=== PATIENT | male | born 1960 | race Caucasian/White ===

== ENCOUNTER 2018-07-03 19:23 | Outpatient (REF) | payer MEDICARE, OTHER, SELFPAY ==
[2018-07-03 20:48] LABS: ALT 16 U/L (12-78); AST 13 U/L (15-37); HDL Cholesterol 23 mg/dL (40-60); LDL CHOLESTEROL 69 mg/dL (<100)
[2018-07-03 21:01] LABS: Creatine Kinase 120 U/L (39-308)
== END 2018-07-03 19:24 ==
LOC: NCHCN 19:23
PROVIDERS: PCP General Practice; Visit Provider Nurse Practitioner Family
DX: I10 Essential (primary) hypertension (principal); R78.5 Finding of other psychotropic drug in blood
CPT/HCPCS: 82550; 83721; 83718; 84450; 84460

== ENCOUNTER 2019-02-26 15:26 | Outpatient (REF) | payer MEDICARE, OTHER, SELFPAY ==
[2019-02-26 21:03] LABS: Anion Gap 11.5 mmol/L (3-11); BUN 12 mg/dL (7-18); CO2 22.5 mmol/L (21.0-32.0); CREATININE 1.18 mg/dL (0.70-1.30); Calcium 9.2 mg/dL (8.5-10.1); Chloride 108 mmol/L (98-107); Glucose 101 mg/dL (70-100); Potassium 4.1 mmol/L (3.5-5.1); Sodium 142 mmol/L (136-145)
== END 2019-02-26 15:46 ==
LOC: NCHCN 15:26
PROVIDERS: PCP General Practice; Visit Provider Nurse Practitioner Family
DX: I10 Essential (primary) hypertension (principal)
CPT/HCPCS: 80048

== ENCOUNTER 2020-04-12 17:04 | Outpatient (REF) | payer MEDICARE, SELFPAY ==
[2020-04-12 20:32] LABS: ALT 27 U/L (16-63); AST 19 U/L (15-37); Albumin 3.9 g/dL (3.4-5.0); Alkaline Phosphatase 81 U/L (46-116); Anion Gap 11.2 mmol/L (3-11); BUN 14 mg/dL (7-18); Bilirubin, Total 0.5 mg/dL (0.2-1.0); CO2 25.8 mmol/L (21.0-32.0); CREATININE 0.98 mg/dL (0.70-1.30); Calcium 8.8 mg/dL (8.5-10.1); Chloride 104 mmol/L (98-107); Creatine Kinase 139 U/L (39-308); Glucose 78 mg/dL (74-106); Potassium 3.8 mmol/L (3.5-5.1); Sodium 141 mmol/L (136-145); Total Protein 7.1 g/dL (6.4-8.2)
[2020-04-12 20:47] LABS: HDL Cholesterol 26 mg/dL (40-60); LDL CHOLESTEROL 125 mg/dL (<100)
== END 2020-04-12 17:24 ==
LOC: NCHCN 17:04
PROVIDERS: PCP General Practice; Visit Provider Nurse Practitioner Family
DX: I10 Essential (primary) hypertension (principal); E78.5 Hyperlipidemia, unspecified
CPT/HCPCS: 80053; 82550; 83721; 83718

== ENCOUNTER 2020-10-11 20:01 | Outpatient (REF) | payer MEDICARE, SELFPAY ==
[2020-10-11 22:02] LABS: HDL Cholesterol 24 mg/dL (40-60); LDL CHOLESTEROL 139 mg/dL (<100)
== END 2020-10-11 20:21 ==
LOC: NCHCN 20:01
PROVIDERS: PCP General Practice; Visit Provider Nurse Practitioner Family
DX: E78.5 Hyperlipidemia, unspecified (principal); I10 Essential (primary) hypertension
CPT/HCPCS: 83721; 83718

== ENCOUNTER 2021-07-06 11:17 | Outpatient (REF) | payer MEDICARE, SELFPAY ==
[2021-07-06 14:49] LABS: ALT 27 U/L (16-63); AST 20 U/L (15-37); Anion Gap 10.2 mmol/L (3-11); BUN 20 mg/dL (7-18); CO2 26.8 mmol/L (21.0-32.0); CREATININE 1.3 mg/dL (0.70-1.30); Calcium 8.7 mg/dL (8.5-10.1); Chloride 102 mmol/L (98-107); Creatine Kinase 229 U/L (39-308); Estimated GFR 56.12 (mL/min/1.73m2); Glucose 111 mg/dL (74-106); Sodium 139 mmol/L (136-145)
[2021-07-06 15:06] LABS: HDL Cholesterol 28 mg/dL (40-60); LDL CHOLESTEROL 98 mg/dL (<100)
== END 2021-07-06 11:18 | disposition home or self-care (01) ==
LOC: NCHCN 11:17
PROVIDERS: PCP General Practice; Visit Provider Nurse Practitioner Family
DX: I10 Essential (primary) hypertension (principal); E78.5 Hyperlipidemia, unspecified
CPT/HCPCS: 80048; 82550; 83721; 83718; 84450; 84460

== ENCOUNTER 2022-01-10 16:18 | Outpatient (REF) | payer MEDICARE, SELFPAY ==
[2022-01-10 19:25] LABS: Potassium 3.3 mmol/L (3.5-5.1)
== END 2022-01-10 16:19 | disposition home or self-care (01) ==
LOC: NCHCN 16:18
PROVIDERS: PCP General Practice; Visit Provider Nurse Practitioner Family
DX: I10 Essential (primary) hypertension (principal); E78.5 Hyperlipidemia, unspecified
CPT/HCPCS: 84132

== ENCOUNTER 2022-10-17 13:58 | Outpatient (REF) | payer MEDICARE, SELFPAY ==
[2022-10-17 15:57] LABS: Hemoglobin A1C 5.9 % (<5.7)
[2022-10-17 16:05] LABS: ALT 19 U/L (16-63); AST 20 U/L (15-37); Albumin 3.6 g/dL (3.4-5.0); Alkaline Phosphatase 63 U/L (46-116); Anion Gap 8.4 mmol/L (3-11); BUN 16 mg/dL (7-18); Bilirubin, Total 0.4 mg/dL (0.2-1.0); CO2 28.6 mmol/L (21.0-32.0); Calcium 8.9 mg/dL (8.5-10.1); Chloride 104 mmol/L (98-107); Estimated GFR 84.57 (mL/min/1.73m2); Glucose 100 mg/dL (74-106); HDL Cholesterol 31 mg/dL (40-60); LDL CHOLESTEROL 76 mg/dL (<100); Potassium 3.1 mmol/L (3.5-5.1); Sodium 141 mmol/L (136-145); Total Protein 6.6 g/dL (6.4-8.2)
[2022-10-17 16:20] LABS: Creatine Kinase 111 U/L (39-308)
== END 2022-10-17 13:59 | disposition home or self-care (01) ==
LOC: NCHCN 13:58
PROVIDERS: PCP General Practice; Visit Provider Nurse Practitioner Family
DX: E78.5 Hyperlipidemia, unspecified (principal); R73.9 Hyperglycemia, unspecified
CPT/HCPCS: 80053; 82550; 83721; 83036; 83718

== ENCOUNTER 2024-02-19 16:20 | Outpatient (REF) | payer OTHER, SELFPAY ==
[2024-02-19 16:41] LABS: ALT 27 U/L (16-63); AST 19 U/L (15-37); Albumin 3.9 g/dL (3.4-5.0); Alkaline Phosphatase 87 U/L (46-116); Anion Gap 11.2 mmol/L (3-11); BUN 13 mg/dL (7-18); Bilirubin, Total 0.3 mg/dL (0.2-1.0); CO2 24.8 mmol/L (21.0-32.0); CREATININE 1.1 mg/dL (0.70-1.30); Calcium 8.7 mg/dL (8.5-10.1); Chloride 105 mmol/L (98-107); Creatine Kinase 99 U/L (39-308); Estimated GFR 74.96 (mL/min/1.73m2); Glucose 115 mg/dL (74-106); Potassium 3.3 mmol/L (3.5-5.1); Sodium 141 mmol/L (136-145); Total Protein 7.1 g/dL (6.4-8.2)
[2024-02-19 17:36] LABS: HDL Cholesterol 29 mg/dL (40-60); LDL CHOLESTEROL 121 mg/dL (<100)
== END 2024-02-19 16:21 | disposition home or self-care (01) ==
LOC: NCHCN 16:20
PROVIDERS: PCP General Practice; Visit Provider Nurse Practitioner Family
DX: I10 Essential (primary) hypertension (principal); E78.5 Hyperlipidemia, unspecified; R73.03 Prediabetes
CPT/HCPCS: 80053; 82550; 83721; 83036; 83718

== ENCOUNTER → 2024-03-14 00:03 | Outpatient (CLI) | payer OTHER, SELFPAY ==
--- NOTE | 2024-03-14 14:30 | DI.US_ITS ---
APPROVED REPORT EXAM: Comprehensive 2D, Doppler, and color-flow Echocardiogram Patient Location: [facility] Consultant: Megha Pagan RDCS (AE) Indications: A Fib, HTN Other Information Study Quality: Fair. Technically limited study due to body habitus. Conclusion Normal left ventricular wall thickness and chamber size. Ejection fraction is 50 to 55%. There are no segmental wall motion abnormalities. Patient is in atrial fibrillation mildly rapid ventricular r esponse with [id number] variation Normal right ventricular size and function Both atria are normal in size Aortic valve is sclerotic and trileaflet without stenosis or regurgitation There is no additional structural or hemodynamically significant valvular disease Estimated right ventricular systolic pressure is 28 mmHg Wall motion Left Ventricle The left ventricle is normal size. Arrhythmia throughout exam. The overall left ventricular systolic function appears low normal. There is normal left ventricular wall thickness. There is normal LV segm ental wall motion. There is no ventricular septal defect visualized. LVEF is 53%. Right Ventricle Right ventricle is grossly normal in size. Right ventricular systolic function is grossly normal. Atria The left atrium size is normal. The right atrium size is normal. The interatrial septum is intact wit h no evidence for an atrial septal defect. Aortic Valve The Aortic valve is sclerotic. Aortic valve is trileaflet. There is no aortic valvular stenosis. No a ortic regurgitation is present. Mitral Valve The mitral valve is normal in structure. No evidence of mitral valve stenosis. Trace mitral regurgita tion. Tricuspid Valve The tricuspid valve is normal in structure. There is no tricuspid valve stenosis. Trace tricuspid reg urgitation. The RVSP is 28.1 mmHg. Pulmonic Valve The pulmonary valve is normal in structure. There is no pulmonic valvular stenosis. There is no pulmo estela valvular regurgitation. Great Vessels The aortic root is normal in size. Ascending aorta is not well visualized. Aortic arch is not well vi sualized. IVC is normal in size and collapses >50% with inspiration. Pericardium There is no pericardial effusion. 2D Dimensions IVSD d PLAX 0.74 cm M: 0.6-1.2 Ao Root d 3.41 cm M: 3.1 - 3.7 LVPW d PLAX 0.74 cm M: 0.6 - 1.2 LVID d PLAX 4.89 cm M: 4.2 - 5.8 LVDs 3.54 cm M: 2.5 - 4.0 LV EF Teichholz 53.5 % FS 27.64 % LV EDV (Teich) 112.3 mL LV ESV (Teich) 52.2 mL M-Mode TAPSE 1.72 cm (M/F) >1.7 Auto EF LV EDV A4C 119.1 mL LV EDV A2C 104.9 mL LV EDV BP 113.8 mL LV ESV A4C 57.6 mL LV ESV A2C 50.2 mL LV ESV BP 54.8 mL LVEF(%) A4C 51.7 % LVEF(%) A2C 52.1 % LVEF(%) BP 51.8 % LV SV A4C 61.5 ml LV SV A2C 54.7 ml LV SV BP 59.0 ml LV CO A4C 5.0 L/min LV CO A2C 5.7 L/min LV CO BP 5.3 L/min HR A4C 81.27 BPM HR A2C 103.75 BPM LV EDV Index (BP) LA Volume LA Length A4C 5.4 cm LA Length A2C 4.9 cm LA Area A4C s 16.95 cm2 LA Area A2C s 15.60 cm2 LA Vol A4C A-L 45.05 mL LA Vol A2C A-L 42.18 mL LA Vol Biplane A-L 45.8 mL LA Vol/BSA A4C A-L LA Vol/BSA A2C A-L LA Vol/BSA BP A-L 26.6 mL/m2 LA Vol A4C MOD 40.1 mL LA Vol A2C MOD 40.2 mL LA Vol BP MOD 42.1 mL RA Volume RA Area A4C 15.5 cm2 RA ESV A4C (A-L) 38.7mL RA Vol/BSA A4C A-L RA Length A4C 5.3 cm RA ESV A4C (MOD) 37.1mL LV Diastology MV E' medial 0.057 (>0.07 m/s) MV E' lateral 0.144 (>0.1 m/s) Aortic Valve AoV Vmax 1.40 m/s LVOT Vmax 0.97 m/s AoV Peak Grad 7.9 mmHg LVOT Peak Grad 3.8 mmHg AoV Area (Vmax) 2.15 cm2 LVOT VTI 0.164 m AoV VTI 0.273 m LVOT Mean Grad 1.9 mmHg AoV Mean John. 1.04 m/s LVOT SV 51.03 mL AoV Mean Grad 4.8 mmHg LVOT Diam s 1.95 cm AoV Area (VTI) 1.87 cm2 Velocity Ratio 0.69 Mitral Valve MV Vmax TIPS 0.93 m/s MV Mean Grad 1.5 (<2mmHg) MV VTI 0.182 m Pulmonary Valve PV Vmax 0.72 (0.5-1.5 m/s) RVOT Vmax 0.57 m/s PV Peak Grad 2.1 mmHg RVOT Peak Gr. 1.3 mmHg PV Mean John 0.46 m/s RVOT VTI 0.093 m PV Mean Grad 1.0 mmHg RVOT Mean Gr. 0.6 mmHg Tricuspid Valve RA Pressure 3.00 mmHg TR Vmax 2.50 m/s TV S' 0.11 m/s TR Peak Grad 25.0 mmHg RVSP (TR) 28.1 mmHg
== END ==
PROVIDERS: PCP General Practice; Visit Provider Nurse Practitioner Family
DX: I48.91 Unspecified atrial fibrillation (principal); I34.0 Nonrheumatic mitral (valve) insufficiency; I36.1 Nonrheumatic tricuspid (valve) insufficiency
CPT/HCPCS: 93306

== ENCOUNTER 2024-05-30 15:58 | Outpatient (CLI) | payer OTHER, SELFPAY ==
--- NOTE | 2024-05-30 15:45 | RT.EKG_ITS ---
APPROVED REPORT Exam: Resting ECG Reason for Exam: rhythm check Patient Location: O HR:49 bpm ECG Measurements Heart Rate 49 AXIS AZ 194 P 54 QRSd 116 QRS -52 QT 427 T 5 QTc 386 Conclusion Sinus bradycardia...rate< 50 LAD, consider left anterior fascicular block...axis(240,-40), S>R II III aVF
== END 2024-05-30 15:59 | disposition home or self-care (01) ==
LOC: DI.KIM 15:59
PROVIDERS: PCP Nurse Practitioner Family; Visit Provider Nurse Practitioner Family
DX: I48.91 Unspecified atrial fibrillation (principal); R00.1 Bradycardia, unspecified; I44.4 Left anterior fascicular block; I10 Essential (primary) hypertension; J44.9 Chronic obstructive pulmonary disease, unspecified; I48.0 Paroxysmal atrial fibrillation
CPT/HCPCS: 93010

== ENCOUNTER 2024-06-13 13:02 | Outpatient (REF) | payer OTHER, SELFPAY ==
[2024-06-13 16:29] LABS: Anion Gap 7.1 mmol/L (3-11); BUN 11 mg/dL (7-18); CO2 27.9 mmol/L (21.0-32.0); CREATININE 1.3 mg/dL (0.70-1.30); Calcium 9.2 mg/dL (8.5-10.1); Chloride 106 mmol/L (98-107); Estimated GFR 61.35 (mL/min/1.73m2); Glucose 94 mg/dL (74-106); Potassium 4.4 mmol/L (3.5-5.1); Sodium 141 mmol/L (136-145)
== END 2024-06-13 13:03 | disposition home or self-care (01) ==
LOC: LBN 13:02
PROVIDERS: PCP Nurse Practitioner Family; Visit Provider Nurse Practitioner Family
DX: I10 Essential (primary) hypertension (principal)
CPT/HCPCS: 80048

== ENCOUNTER 2025-02-13 11:17 | Outpatient (REF) | payer MEDICARE, SELFPAY ==
[2025-02-13 15:07] LABS: Calculated LDL 61 mg/dL (<100); Cholesterol 107 mg/dL (<200); HDL Cholesterol 34 mg/dL (>or=40); Triglyceride 61 mg/dL (<150)
== END 2025-02-13 11:18 | disposition home or self-care (01) ==
LOC: LBN 11:17
PROVIDERS: PCP Nurse Practitioner Family; Visit Provider Nurse Practitioner Family
DX: E78.5 Hyperlipidemia, unspecified (principal)
CPT/HCPCS: 80061

== ENCOUNTER 2025-03-10 16:46 | Emergency (ER) | payer MEDICARE, SELFPAY ==
[2025-03-10] VITALS (30 sets, daily range): BP systolic 131–140; BP diastolic 99–116; PULSE 54–112; RESP 13–33; TEMP 36.7; O2SAT 91–100
--- NOTE | 2025-03-10 16:45 | RT.EKG_ITS ---
APPROVED REPORT Exam: Resting ECG Reason for Exam: Left chest and shoulder pain Patient Location: E HR:90 bpm ECG Measurements Heart Rate 90 AXIS IN [id number] P [id number] QRSd 108 QRS -79 QT 381 T 82 QTc 486 Conclusion a fib [facility]
--- NOTE | 2025-03-10 16:55 | DI.RAD_ITS ---
Exam(s) XR CHEST 1V IN DI DEPT EXAM: XR CHEST 1V IN DI DEPT CLINICAL HISTORY: Cp/SOB TECHNIQUE: 2D digital imaging was performed. COMPARISON: CR CHEST 2 VIEWS PA,LAT from 04/16/2014 CR XR SHOULDER LT COMPLETE 2+V from 03/10/2025 FINDINGS: LUNGS: Mildly hyperinflated but clear. No pleural abnormality seen. HEART: Normal size. AORTA: Normal diameter. BONES: Unremarkable for age. Soft tissues: Unremarkable. IMPRESSION: No acute findings. DATA REPOSITORY: RADIATION DOSE DELIVERED:
--- NOTE | 2025-03-10 17:00 | DI.RAD_ITS ---
Exam(s) XR SHOULDER LT COMPLETE 2+V EXAM: XR SHOULDER LT COMPLETE 2+V CLINICAL HISTORY: Pain. TECHNIQUE: 2D digital imaging was performed. Four views. COMPARISON: No exams were available for comparison FINDINGS: BONES: No acute fracture is present. No bony destructive lesion is seen. There is spurring at the un dersurface of the acromion. This calcification adjacent to the acromion. Degenerative subchondral c ysts are noted in the humeral head. JOINTS: No dislocation present. The glenohumeral joint is maintained. No significant degenerative c hanges. There is minimal spurring at the AC joint. SOFT TISSUE: Normal. IMPRESSION: No acute abnormality DATA REPOSITORY: RADIATION DOSE DELIVERED:
--- NOTE | 2025-03-10 17:04 | ED.GENADUL_ITS ---
Discharge Plan Disposition Patient Disposition: Against Medical Advice Condition: Fair Discharge Details Clinical Impression: Degenerative arthritis of left shoulder region, Elevated troponin I level Primary Care Provider: Mayda Nowak ED Provider: Sharita Ballesteros Home Meds and New Rx's Prescriptions: New furosemide 20 mg tablet 20 mg PO DAILY Qty: 30 0RF Rx Instructions: Take once daily in am daily Continued (DME) Aerochamber Mini Spacer See Rx Instructions .Route Rx Instructions: As directed atorvastatin 80 mg tablet 80 mg PO DAILY epinephrine [EpiPen 2-Fabian] 0.3 mg/0.3 mL auto-injector 0.3 mg IM ONCE Rx Instructions: as a single dose; may repeat once Eliquis 5 mg tablet 5 mg PO BID diltiazem HCl 60 mg capsule,extended release 12 hr 60 mg PO BID Qty: 180 3RF Rx Instructions: Stop Metoprolol and start Diltiazem for Atrial fibrillation gabapentin 400 mg capsule 400 mg PO TID PRN (Reason: back pain) Qty: 240 3RF losartan 50 mg tablet 50 mg PO DAILY Qty: 90 3RF Trelegy Ellipta 100-62.5-25 mcg blister with device See Rx Instructions .ROUTE .COMPLEX Qty: 60 3RF Dose Instruction: INHALE ONE PUFF BY MOUTH EVERY DAY Rx Instructions: INHALE ONE PUFF BY MOUTH EVERY DAY levalbuterol tartrate 45 mcg/actuation HFA aerosol inhaler See Rx Instructions .ROUTE .COMPLEX Qty: 15 1RF Dose Instruction: INHALE TWO PUFFS BY MOUTH EVERY 4 HOURS NEEDED FOR FOR SHORTNESS OF BREATH OR WHEEZING Rx Instructions: INHALE TWO PUFFS BY MOUTH EVERY 4 HOURS NEEDED FOR FOR SHORTNESS OF BREATH OR WHEEZING Discharge Instructions Instructions: Osteoarthritis, Troponin Test, Chest Pain, Adult ED Additional Instructions: It is concerning today as your troponin level which is a cardiac specific enzyme is slightly elevated. He also have an elevated level called a proBNP which indicates that your heart is not pumping fluid appropriately which was elevated at 5000. A prescription for furosemide Lasix 20 mg tablets was sent to the pharmacy on file. Please take this daily in the a.m. and discuss this with your primary care provider for close follow-up within the next 3 to 5 days. Return to the ER if you have any worsening chest pain or recurrence of chest pain. The shoulder x-ray shows some bone spurring and degenerative changes with osteoarthritis. Please take Tylenol with food every 4-6 hours as needed for pain and swelling. Follow up with primary care provider in 3-5 days. Return to ED sooner if any worsening or concerns. At this time I did offer admission and I do recommend admission for further observation and blood draws which you have declined at this time. Please return to the ER if you change your mind. Referrals: Mayda Nowak APRN [Primary Care Provider] - 3 days HPI General Mode of arrival: ambulatory . Date/Time Provider Initiated Documentation: 03/10/25 16:54 . Limitations to Documentation: no limitations . Information obtained by: patient, RN notes reviewed and old records reviewed . HPI Narrative: 64-year-old male presents to the ER with a chief complaint left shoulder pain which has been worse over the last 3 days. He reports no recent injury that he is aware of no falls. He reports last night pain did radiate into his chest. He reports some relief with topical cream. Does have a history of atrial fibrillation is on Eliquis has COPD. He is having difficulty raising his arm approximately 45 degrees. Distal CMS is intact. He does have some rhonchi with auscultation of his lungs bilaterally. Related Data Home Medications ?Medication ?Instructions ?Recorded ?Confirmed atorvastatin 80 mg tablet 80 mg PO DAILY 05/29/24 03/10/25 epinephrine 0.3 mg/0.3 mL 0.3 mg IM ONCE 05/29/24 03/10/25 injection, auto-injector (EpiPen 2-Fabian) inhalational spacing device 05/29/24 03/10/25 (Aerochamber Mini) apixaban 5 mg tablet (Eliquis) 5 mg PO BID 05/30/24 03/10/25 losartan 50 mg tablet 50 mg PO DAILY #90 tabs 06/27/24 03/10/25 fluticasone fur. 100 mcg-umeclid See Rx Instructions .Route 12/08/24 03/10/25 62.5 mcg-vilant 25 mcg .COMPLEX #60 blisters inhalat.powder (Trelegy Ellipta) levalbuterol tartrate 45 See Rx Instructions .Route 02/09/25 03/10/25 mcg/actuation aerosol inhaler .COMPLEX #15 grams diltiazem HCl 60 mg 60 mg PO BID afib #180 caps 02/13/25 03/10/25 capsule,extended release 12 hr gabapentin 400 mg capsule 400 mg PO TID PRN back pain #240 02/13/25 03/10/25 caps furosemide 20 mg tablet 20 mg PO DAILY CHF #30 tabs 03/10/25 Previous Rx's ?Medication ?Instructions ?Recorded losartan 50 mg tablet 50 mg PO DAILY #90 tabs 06/27/24 fluticasone fur. 100 mcg-umeclid See Rx Instructions .Route 12/08/24 62.5 mcg-vilant 25 mcg .COMPLEX #60 blisters inhalat.powder (Trelegy Ellipta) levalbuterol tartrate 45 See Rx Instructions .Route 02/09/25 mcg/actuation aerosol inhaler .COMPLEX #15 grams diltiazem HCl 60 mg 60 mg PO BID afib #180 caps 02/13/25 capsule,extended release 12 hr gabapentin 400 mg capsule 400 mg PO TID PRN back pain #240 02/13/25 caps furosemide 20 mg tablet 20 mg PO DAILY CHF #30 tabs 03/10/25 Allergies Allergy/AdvReac Type Severity Reaction Status Date / Time venom-wasp Allergy Severe Swelling/Ed Verified 03/10/25 16:49 foster fluticasone (From Advair Allergy Intermediate Other (See Verified 03/10/25 16:49 Diskus) Comment) lisinopril Allergy Intermediate Other (See Verified 03/10/25 16:49 Comment) salmeterol (From Advair Allergy Intermediate Other (See Verified 03/10/25 16:49 Diskus) Comment) General Stated Complaint: GenMedical OSVALDO: 3 Review of Systems All systems reviewed & are unremarkable except as noted in HPI and below Cardiovascular Cardiovascular: Reports chest pain and Reports radiating jaw, neck or arm pain Musculoskeletal Musculoskeletal: Reports arthralgias Exam Narrative Exam Narrative: Constitutional: Alert and oriented x3. Appears stated age. Thin body habitus. Head: Normocephalic, no trauma. Eyes: Pupils PERRL, Red reflex noted, EOM's intact. Eyelids symmetrical without lesions, discharge, or swelling. ENT: Bilateral TM's WNL, External ear normal to inspection, no mastoid TTP, swelling, or erythema, Nasal turbinates WNL, no nasal discharge. Normal dentition, Posterior pharynx WNL, no exudate. Chest: Irregular rate, normal S1, S2, distal pulses intact. Resp: Lungs scattered rhonchi bilaterally. Abdomen: Soft, non-distended, Normoactive bowel sounds all 4 quads. Musculoskeletal: Normal gait, decreased abduction of left shoulder to approximately 45 degrees, distal CMS intact. Skin: No suspicious rashes or lesions. Capillary refill less than 2 sec. Neurologic: Cranial nerves II-XII intact. Alert and oriented x 3. Motor: No deficits noted. Sensory: Intact bilaterally all 4 extremities. Hematologic/Lymphatic: No ecchymosis, no lymphadenopathy. Course Vital Signs Vital signs: Vital Signs Temperature 36.7 C 03/10/25 16:51 Pulse 56 L 03/10/25 16:51 Respiratory Rate 24 03/10/25 16:51 Blood Pressure 131/99 H 03/10/25 16:51 Pulse Oximetry 91 L 03/10/25 16:51 Temperature 36.7 C 03/10/25 16:51 Temperature Source Oral 03/10/25 16:51 Pulse 56 L 03/10/25 16:51 Respiratory Rate 24 03/10/25 16:51 Blood Pressure 131/99 H 03/10/25 16:51 Blood Pressure Position Sitting 03/10/25 16:51 Pulse Oximetry 91 L 03/10/25 16:51 Oxygen Delivery Method Room Air 03/10/25 16:51 Oxygen Flow Rate 0 03/10/25 16:51 Medical Decision Making 64-year-old male presents to the ER with a chief complaint left shoulder pain which has been worse over the last 3 days. He reports no recent injury that he is aware of no falls. He reports last night pain did radiate into his chest. He reports some relief with topical cream. Does have a history of atrial fibrillation is on Eliquis has COPD. He is having difficulty raising his arm approximately 45 degrees. Distal CMS is intact. He does have some rhonchi with auscultation of his lungs bilaterally. Cardiac workup ordered to rule out cardiac involvement, serial troponins, chest x-ray x-ray of left shoulder. Did offer analgesic at this time which patient declined. Patient is tachycardic with a rate of 112, irregular rate atrial fibrillation. O2 sat 94% on room air. Initial troponin came back elevated at 80, proBNP is also elevated at 5171, glucose 110 no leukocytosis. X-ray shows degenerative changes of the left shoulder. Chest x-ray within normal limits. Informed patient and family of elevated troponin and repeat being necessary. Patient states that I am not going to stay here all night, I have animals at home. He has no complaints of chest pain at this time. Serial troponin is pending at this time. According to the years algorithm PE can be excluded. D-dimer slightly elevated at 752, initial troponin 82-second troponin 81. Patient has no chest pain at this time. I do not think that chest CT PE protocol is indicated at this time. Serial troponin is 83, this is pretty much flat however slightly more elevated I did offer admission to patient who refuses at this time. I did discuss close follow-up with his primary care provider. I will send him home with a low-dose of furosemide due to his elevated BNP. He has no swelling noted in his lower extremities. He verbalized understanding is at bedside. Patient opted to leave AMA. The patient appears clinically sober and is not under the influence of any known substances. Discussed risks and benefits with patient. Patient verbalizes understanding of situation and the risks of leaving including worsening condition, developing disability, including but not limited to . Discussed results of labs and imaging, if they were performed and recommendations for further treatment and/or observation. The patient verbalizes understanding of the results discussed. Every effort was made to involve family who is at bedside and situation discussed. At this time patient has opted to leave against medical advice. Patient is alert and oriented and has the capacity to make own decisions. I did offer admission at this time. This text was generated using [employer] dictation system, please disregard any oddities of phrase or misspellings. Medical Records Medical records reviewed: Yes I reviewed the patient's medical records. Lab Data Lab results reviewed: Yes I reviewed the patient's lab results. Labs: Laboratory Tests Range/Units 03/10/25 03/10/25 17:15 18:20 WBC (4.4-10.8) 10^3/uL 8.22 RBC (4.36-5.78) 10^6/uL 5.12 Hgb (13.5-17.5) g/dL 16.1 Hct (40.0-50.0) % 47.3 MCV (80-95) fL 92 MCH (27.0-33.0) pg 31.4 MCHC (32.0-36.0) % 34.0 RDW (11.8-14.1) % 13.3 Plt Count (130-400) 10^3/uL 202 MPV (8.0-11.0) fL 10.1 Immature Gran % % 0.2 Neutrophils % % 67.2 Lymphocytes % % 24.6 Monocytes % % 6.4 Eosinophils % % 0.9 Basophils % % 0.7 Nucleated RBC % (0.0-0.3) % 0.0 Absolute Neutrophils (1.2-6.7) 10^3/uL 5.52 Absolute Lymphocytes (1.2-3.4) 10^3/uL 2.02 Absolute Monocytes (0.1-0.8) 10^3/uL 0.53 Absolute Eosinophils (0.0-0.7) 10^3/uL 0.07 Absolute Basophils (0.0-0.2) 10^3/uL 0.06 PT Cancelled 11.6 H INR Cancelled 1.2 H APTT Cancelled 26.5 D-Dimer Cancelled 752 H Sodium (136-145) mmol/L 143 Potassium (3.5-5.1) mmol/L 3.8 Chloride (98-107) mmol/L 108 H Carbon Dioxide (21.0-32.0) mmol/L 25.7 Anion Gap (3-11) mmol/L 9.3 BUN (7-18) mg/dL 17 Creatinine (0.70-1.30) mg/dL 1.3 Est GFR (CKD-EPI 2020) (mL/min/1.73m2) 60.96 Glucose (74-106) mg/dL 110 H Calcium (8.5-10.1) mg/dL 9.1 Magnesium (1.8-2.4) mg/dL 1.8 Total Bilirubin (0.2-1.0) mg/dL 0.8 AST (15-37) U/L 15 ALT (16-63) U/L 22 Alkaline Phosphatase (46-116) U/L 110 Troponin I (<or=76) ng/L 82 H* 81 H* NT-Pro-B Natriuret Pep (<300) pg/mL 5171 H Total Protein (6.4-8.2) g/dL 7.0 Albumin (3.4-5.0) g/dL 3.7 Lipase (<78) U/L 31 Quality:SDOH Health Related Social Needs: Health related social needs details no car, pts dtr [facility] them to [facility] All Active Problems (Updated 03/10/25 @ 19:03 by Sharita Ballesteros NP) Elevated troponin I level (Acute) Degenerative arthritis of left shoulder region (Acute) Elevated hemoglobin A1c (Acute) Fatigue (Acute) Atrial fibrillation (Chronic) Allergy to drug (Acute) Low back pain (Acute) Chronic obstructive pulmonary disease (Chronic) Essential hypertension (Acute) Hyperlipidemia (Acute) Medical History Dental infection Hyperglycemia Surgical History Hx of hand surgery History of partial knee replacement Family History Mother Breast cancer Family history of acute medical disorder Brain tumor Brother Colon cancer Hypertension Sister Cancer Maternal Grandfather Heart attack Social History Smoking/Tobacco Use Status: Former Tobacco Use Quit Date: 11/05/96 Smoking risk assessment performed?: Yes Alcohol Intake: former Drug use: Daily Substance use type: marijuana Adopted: Yes Caregiver/Support person: No Foster care: No Housing: house Number of Children: 4 number of grandchildren: 11 Communication Needs: None Education Level: high school Do you need help understanding health information?: Rarely Pets and animals: Yes (1 cat, 1 dog) Pets and animals: cat(s) and dog(s) Sexually active: Yes Do you think of yourself as: straight/heterosexual Current gender identity: male What is your relationship status?: How often do you talk on the phone with friends or family?: three or more times per week How often do you get together with friends or relatives?: twice per week Do you belong to any clubs or organized social groups?: no Panel score (0-1 are the most socially isolated patients): 2 What type of physical activity do you participate in: walking Duration: > 90 minutes/day Frequency: daily Estefania/Uatsdin: Uatsdin Special estefania needs: No Seatbelt use: always Helmet use: Yes Drive intox or ride w/intox sanitation truck driver: No
[2025-03-10 17:22] LABS: Abs Immature Grans 0.02 10^3/uL (0.0-0.06); Absolute Basophil Count 0.06 10^3/uL (0.0-0.2); Absolute Eosinophil Count 0.07 10^3/uL (0.0-0.7); Absolute Lymphocyte Count 2.02 10^3/uL (1.2-3.4); Absolute Monocyte Count 0.53 10^3/uL (0.1-0.8); Absolute Neutrophil Count 5.52 10^3/uL (1.2-6.7); Basophils % 0.7 %; Eosinophils % 0.9 %; HCT 47.3 % (40.0-50.0); HGB 16.1 g/dL (13.5-17.5); Immature Grans % 0.2 %; Lymphocytes % 24.6 %; MCH 31.4 pg (27.0-33.0); MCV 92 fL (80-95); MPV 10.1 fL (8.0-11.0); Monocytes % 6.4 %; Neutrophils % 67.2 %; Platelet Count 202 10^3/uL (130-400); RBC 5.12 10^6/uL (4.36-5.78); RDW 13.3 % (11.8-14.1); RDW-SD 45.4 fL; WBC 8.22 10^3/uL (4.4-10.8)
[2025-03-10 17:44] LABS: ALT 22 U/L (16-63); AST 15 U/L (15-37); Albumin 3.7 g/dL (3.4-5.0); Alkaline Phosphatase 110 U/L (46-116); Anion Gap 9.3 mmol/L (3-11); BUN 17 mg/dL (7-18); Bilirubin, Total 0.8 mg/dL (0.2-1.0); CO2 25.7 mmol/L (21.0-32.0); CREATININE 1.3 mg/dL (0.70-1.30); Calcium 9.1 mg/dL (8.5-10.1); Chloride 108 mmol/L (98-107); Estimated GFR 60.96 (mL/min/1.73m2); Glucose 110 mg/dL (74-106); Lipase 31 U/L (<78); Magnesium 1.8 mg/dL (1.8-2.4); NT-proBNP 5171 pg/mL (<300); Potassium 3.8 mmol/L (3.5-5.1); Sodium 143 mmol/L (136-145)
[2025-03-10 17:46] LABS: Troponin I 82 ng/L (<or=76)
[2025-03-10] MEDS: Aspirin 81 MG CHEW 324 MG CH (18:24)
[2025-03-10 18:40] LABS: INR 1.2 (0.9-1.1); PTT Activated 26.5 sec (20.6-30.2); Prothrombin Time 11.6 sec (9.1-11.1)
[2025-03-10 18:55] LABS: D-Dimer 752 ng/mlFEU (<500)
[2025-03-10 18:57] LABS: Troponin I 81 ng/L (<or=76)
[2025-03-10 21:04] LABS: Troponin I 83 ng/L (<or=76)
== END 2025-03-10 21:27 | disposition left against medical advice (07) ==
PROVIDERS: Emergency Provider Registered Nurse Emergency; PCP Nurse Practitioner Family
DX: M19.012 Primary osteoarthritis, left shoulder (principal); R79.89 Other specified abnormal findings of blood chemistry; I48.91 Unspecified atrial fibrillation; J44.9 Chronic obstructive pulmonary disease, unspecified; Z79.01 Long term (current) use of anticoagulants
CPT/HCPCS: 36415; 80053; 83690; 93005; 99285; 71045; 73030; 83735; 83880; 84484; 85025; 85379; 85610; 85730; 93010; 99284

== ENCOUNTER 2025-04-03 15:45 | Outpatient (REF) | payer MEDICARE, SELFPAY ==
[2025-04-03 21:15] LABS: Anion Gap 8.6 mmol/L (3-11); BUN 10 mg/dL (7-18); CO2 26.4 mmol/L (21.0-32.0); Calcium 8.8 mg/dL (8.5-10.1); Chloride 104 mmol/L (98-107); Estimated GFR 83.52 (mL/min/1.73m2); Glucose 97 mg/dL (74-106); Potassium 3.6 mmol/L (3.5-5.1); Sodium 139 mmol/L (136-145)
== END 2025-04-03 15:46 | disposition home or self-care (01) ==
LOC: LBN 15:45
PROVIDERS: PCP Nurse Practitioner Family; Visit Provider Nurse Practitioner Family
DX: Z79.899 Other long term (current) drug therapy (principal)
CPT/HCPCS: 80048